=== PATIENT | male | born 1990 | race Caucasian/White ===

== ENCOUNTER 2021-04-29 01:40 | Inpatient (IN) | payer OTHER, SELFPAY ==
[2021-04-29] VITALS (13 sets, daily range): BP systolic 55–147; BP diastolic 37–120
[~2021-04-29] VITALS: Ht 175.3 cm; Wt 115.2 kg
--- NOTE | 2021-04-29 01:40 | NUR ---
PT BROUGHT TO BED 1 VIA DAVIS SORTO
[2021-04-29] MEDS ORDERED: ETOMIDATE 20 MG/10 ML VIAL IVP ONE ×2 (01:45→01:50)
[2021-04-29] MEDS ORDERED: PROPOFOL 1000 MG/100 ML PREMIX 100 ML IV ONE ×3 (01:45→04:52)
[2021-04-29] MEDS ORDERED: SUCCINYLCHOLINE CHLORIDE 200 MG/10 ML VIAL IVP ONE (01:45)
[2021-04-29] MEDS ORDERED: PROPOFOL 200 MG/20 ML VIAL IV ONE (01:45)
--- NOTE | 2021-04-29 01:50 | NUR ---
SEE IV SPREAD SHEET FOR VS.
--- NOTE | 2021-04-29 01:50 | NUR ---
PATIENT 30 Y/O MALE ARRIVED TO ER WITH AGONAL RESPIRATIONS AND ALTERED. PATIENT NOTED WITH COLD CLAMY SKIN AND JAUNDICE. PATIENT WAS INTUBATED W/ 7.5 ETT SECURED @ 23CM PT PLACED ON VENT AC/VC 475 +5 f16 100%. PER EMS PATIENT HAS MEDICAL HX OF LUNG CANCER THAT HAS METASTASIZED TO SPINE AND BONE. PATIENT NOTED WITH NATALEE. RT, PRIMARY RN, LACTATION CONSULTANT, AND EMT AT BEDSIDE FOR INTUBATION. MEDHX: LUNG CANCER, HTN, BKA NKA
--- NOTE | 2021-04-29 01:52 | NUR ---
# 16 FR Swan catheter with 10 ml utilizing sterile technique. Immediate return of 50 ml YELLOW urine noted. Bedside drainage bag placed below level of bladder. Urine sample collected and sent to lab. Pt tolerated procedure WELL. OG TUBE PLACED.
[2021-04-29] MEDS ORDERED: NACL 0.9% 1,000 ML IV ONE (01:55)
--- NOTE | 2021-04-29 02:00 | NUR ---
LABS DRAWN AND TAKEN TO [facility]- [facility].
[2021-04-29 02:10] LABS: BASOPHILS # (AUTO) 0.1 K/uL (0.00-0.22); BASOPHILS % (AUTO) 0.5 % (0.0-2.0); EOSINOPHILS % (AUTO) 0.1 % (0.0-4.0); HEMATOCRIT 45.8 % (36-52); HEMOGLOBIN 14.7 g/dL (12.0-18.0); LYMPHOCYTES # (AUTO) 1.4 K/uL (2.0-11.5); LYMPHOCYTES % (AUTO) 4.8 % (20.5-51.1); MEAN CORPUSCULAR HEMOGLOBIN 25 pg (27-31); MEAN CORPUSCULAR HGB CONC 32 g/dL (33-37); MEAN CORPUSCULAR VOLUME 78.2 fL (80-94); MONOCYTES # (AUTO) 1.1 K/uL (0.8-1.0); MONOCYTES % (AUTO) 3.7 % (1.7-9.3); NEUTROPHILS % (AUTO) 90.9 % (42.2-75.2); PLATELET COUNT (AUTO) 192 K/uL (140-450); RED BLOOD CELL COUNT(AUTO) 5.86 MIL/uL (4.20-6.10); RED CELL DISTRIBUTION WIDTH 21.3 % (11.6-13.7)
[2021-04-29] MEDS ORDERED: VANCOMYCIN 1,000 MG in DEXTROSE 5% 250 ML IV ONE (02:10)
[2021-04-29] MEDS ORDERED: PIPERACILLIN/TAZOBACTAM 3.375 GM in DEXTROSE 5% 50 ML IV ONE (02:10)
[2021-04-29] MEDS ORDERED: MIDAZOLAM MDV 50 MG in NACL 0.9% 40 ML IV ONE (02:20)
[2021-04-29 02:22] LABS: APPEARANCE,URINE SL CLOUDY (CLEAR); BILIRUBIN,URINE NEGATIVE (NEGATIVE); BLOOD, URINE 3+ (NEGATIVE); COLOR,URINE YELLOW (YELLOW); LEUKOCYTE ESTERASE ,URINE NEGATIVE (NEGATIVE); NITRITE, URINE NEGATIVE (NEGATIVE); UGLUCOSE NEGATIVE (NEGATIVE)
[2021-04-29 02:25] LABS: WHITE BLOOD COUNT (AUTO) 28.6 K/uL (4.8-10.8)
--- NOTE | 2021-04-29 02:27 | NUR ---
PT BIBA AND WAS INTUBATED W/ 7.5 ETT SECURED @ 23CM PT PLACED ON VENT AC/VC 475 +5 f16 100% VENT PLUGGED INTO RED OUTLET W/ ALARMS ON AND AUDIBLE AMBU REMAINS AT BEDSIDE PENDING CXR FOR TUBE PLACEMENT. CONDENSATION VISABLE IN TUBE W/ COLOR CHANGE ON EZ CAP (CO2)
[2021-04-29] MEDS ORDERED: MIDAZOLAM MDV 50 MG/10 ML VIAL IV ONE (02:28)
--- NOTE | 2021-04-29 02:30 | NUR ---
ERMD MADE AWARE THAT PATIENT BP:62/23. NEW ORDER FOR LEVOHPED 4MG GIVEN TITRATING DRIP. 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 BED IS LOCKED AND IN LOWEST POSTION. RT AT BEDSIDE.
[2021-04-29 02:31] LABS: RBC,URINE TOO NUMEROUS TO COUN /HPF (0-5); WBC,URINE 0-5 /HPF (0-5)
[2021-04-29 02:32] LABS: PROTHROMBIN TIME 13.2 secs (10.8-13.4)
[2021-04-29 02:33] LABS: ANION GAP 17.3 (8-16); CARBON DIOXIDE 22.6 mmol/L (21-32); CREATININE 1.4 mg/dL (0.6-1.3); POTASSIUM 4.9 mmol/L (3.5-5.1); TOTAL BILIRUBIN 1.9 mg/dL (0.0-1.0)
[2021-04-29] MEDS ORDERED: NOREPINEPHRINE 4 MG in DEXTROSE 5% 250 ML IV ONE (02:40)
[2021-04-29] MEDS ORDERED: NOREPINEPHRINE 4 MG/4 ML VIAL IV ONE ×3 (02:40→10:30)
--- NOTE | 2021-04-29 02:52 | NUR ---
UNABBLE TO OBTAIN ABG AT THIS TIME DUE TO LOW BP DR WAS INFORMED
--- NOTE | 2021-04-29 03:05 | NUR ---
SISTER NÉSTOR BONNER [phone]
[2021-04-29] MEDS ORDERED: PIPERACILLIN/TAZOBACTAM 3.375 GM VIAL IV ONE (03:11)
--- NOTE | 2021-04-29 03:15 | NUR ---
GAVE REPORT TO [facility] SALES REPRESENTATIVE FOR LUNCH COVERAGE.
--- NOTE | 2021-04-29 03:15 | NUR ---
MULTIPLE ATTEMPTS AT IV PLACEMENT ATTEMPTED TO ADMINISTER MEDICATIONS ORDERD. IV PLACED IN L HAND. IVF BEING ADMINISTERED.
--- NOTE | 2021-04-29 04:02 | NUR ---
RECIVED PARRISH CHEN, RT AT BEDSIDE. PATIENT IV PULLED OUT. CATHETER IN PLACE, DRESSING APPLIED TO SITE AND PRESSURE APPLIED. PATIENT RECIVED 100ML OF IVF. ATTEMPTED TO REPLACE IV.
--- NOTE | 2021-04-29 04:18 | NUR ---
ABNORM ABG RESULTS REPORTED TO W/ NO CHANGES AT THIS TIME VENT MODE WAS CHANGED TO PC P22 +5 f16 100% POST ABG DUE TO HIGH PIPs PT RECIEVING APPROX 450 TO 480 Vt ED WAS INFORMED
--- NOTE | 2021-04-29 05:02 | NUR ---
CALLED SISTER AND GAVE UPDATE ON PATIENT'S CONDITION. SISTER GAVE MORE INFORMATION ON PATIENT'S MEDICAL HX AND MED REC.
--- NOTE | 2021-04-29 05:22 | NUR ---
MULTIPLE ATTEMPTS MADE FOR ANOTHER IV PLACEMENT. UNSUCCESSFUL, ERMD MADE AWARE AND NOTIFIED THAT IVF AND ANTIBIOTICS TO BE ADMINISTERED LATE WITH IV INSERTION. ERMD STATES THAT WILL NOT PLACE A CENTRAL LINE AT THIS TIME.
--- NOTE | 2021-04-29 06:04 | NUR ---
CONTACTED FOR POSSIBLE PICC LINE INSERTION.
--- NOTE | 2021-04-29 06:15 | NUR ---
SPOKE WITH AND EXPLAINED THAT MULTIPLE ATTEMPTS FOR ANOTHER IV INSERTION UNSUCCESSFUL AND ERMD UNABLE TO PLACE CENTRAL LINE AT THIS TIME. RECIVED NEW ORDER FOR PICC LINE INSERTION. GRAVEL HAULER GRECIA NOTIFIED.
--- NOTE | 2021-04-29 06:17 | NUR ---
LEAVE MESSAGE TO PICCLINE REGARDING PICCLINE ORDER
[2021-04-29] MEDS ORDERED: HYDR-5080 PO (06:18)
[2021-04-29] MEDS ORDERED: FENT100T TD (06:18)
[2021-04-29] MEDS ORDERED: METO50TE2 PO (06:18)
--- NOTE | 2021-04-29 07:15 | NUR ---
REPORT GIVEN TO PRANEETH MCCOLLUM, TRANSFER OF CARE.
--- NOTE | 2021-04-29 07:19 | NUR ---
RECEIVED REPORT FROM VEDA VUONG FOR CONTINUATION OF CARE
--- NOTE | 2021-04-29 07:30 | NUR ---
TRANSFERRED PT FROM ED TO ICU WITH NO INCIDENT. VENT CONNECTED TO RED OUTLET. WILL CONTINUE TO MONITOR PATIENT.
--- NOTE | 2021-04-29 07:35 | NUR ---
RCV'D PATIENT INTUBATED WITH 7.5 ETT AT 23 CM AT TEETH. TUBE IS IN PLACE AND SECURED WITH ANCHOR-FAST. NO SOB OR DISTRESS NOTES. VENT CONNECTED TO RED OUTLET. ALARMS AUDIBLE. AMBU BAG AT BEDSIDE. WILL CONTINUE TO MONITOR PATIENT.
--- NOTE | 2021-04-29 08:01 | NUR ---
Patient will be admitted to care of DR. GOMES. Admited to ICU. Will go to room ICU BED 8. Belongings list completed. Report to VEDA YOU.
--- NOTE | 2021-04-29 08:01 | NUR ---
PT TAKEN TO ICU BED 8 WITH THONG ALLISON AND [place] EMT
[2021-04-29] MEDS ORDERED: VANCOMYCIN PER PHARMACY MC PRN (08:05)
[2021-04-29] MEDS ORDERED: INSULIN LISPRO SLIDING SCALE 100 UNITS/ML VIAL SUBQ PRN (08:10)
[2021-04-29] MEDS ORDERED: DEXTROSE 50% 50 ML SYR IVP PRN (08:10)
[2021-04-29] MEDS ORDERED: ONDANSETRON 4 MG/2 ML VIAL IM/IVP PRN (08:15)
[2021-04-29] MEDS ORDERED: POTASSIUM CHLORIDE 40 MEQ, LIDOCAINE MPF 1% 25 MG in NACL 0.9% 250 ML IV PRN (08:15)
[2021-04-29] MEDS ORDERED: DOCUSATE SODIUM 100 MG GELCAP PO PRN (08:15)
[2021-04-29] MEDS ORDERED: MAG SULF 2000 MG/WATER PREMIX 50 ML IV PRN (08:15)
[2021-04-29] MEDS ORDERED: NACL 0.9% 1,000 ML IV SCH (08:15)
[2021-04-29] MEDS ORDERED: ACETAMINOPHEN 325 MG TAB PO PRN (08:15)
[2021-04-29] MEDS ORDERED: SODIUM PHOS / POTASSIUM PHOS 1 PKT PDR PO PRN (08:15)
[2021-04-29] MEDS ORDERED: MORPHINE SULFATE 2 MG/ML SYR IVP PRN (08:15)
[2021-04-29] MEDS ORDERED: HYDROcodone/APAP 5/325 MG 1 TAB TAB PO PRN (08:15)
--- NOTE | 2021-04-29 08:20 | NUR ---
PATIENT HAS BEEN SCREENED AND CATEGORIZED HIGH NUTRITION RISK. PATIENT WILL BE SEEN WITHIN 1-2 DAYS OF ADMISSION. 04/29/21-04/30/21 FNS CONSULT RECEIVED FOR TUBE FEEDING [address]ACE [address]
[2021-04-29 08:40] LABS: PHOSPHORUS 6.6 mg/dL (2.5-4.9)
[2021-04-29] MEDS ORDERED: PANTOPRAZOLE 40 MG INJ VIAL IVP SCH (09:00)
--- NOTE | 2021-04-29 09:25 | NUR ---
ABG DONE. RIA GOMES FOR RESULTS.
[2021-04-29] MEDS: PROPOFOL 1000 MG/100 ML PREMIX 100 ML IV PRN ×2 (10:36→15:16)
[2021-04-29] MEDS ORDERED: NOREPINEPHRINE 4 MG in DEXTROSE 5% 250 ML IV PRN (10:45)
[2021-04-29] MEDS ORDERED: VANCOMYCIN HCL 1.25 GM in DEXTROSE 5% 250 ML IV SCH (11:00)
[2021-04-29] MEDS ORDERED: SCOPOLAMINE 1.5 MG/72 HR PATCH TD PRN (11:05)
[2021-04-29] MEDS ORDERED: LORazepam 1 MG TAB PO PRN (11:05)
[2021-04-29] MEDS ORDERED: BLOOD GLUCOSE MONITORING 1 DEV DEV FS SCH (11:30)
[2021-04-29] MEDS ORDERED: NACL 0.9% IV PRN (11:30)
[2021-04-29] MEDS ORDERED: MORPHINE SULFATE IV PRN (11:30)
[2021-04-29] MEDS: PIPERACILLIN/TAZOBACTAM 3.375 GM in DEXTROSE 5% 50 ML IV SCH ×2 (12:00→19:00)
--- NOTE | 2021-04-29 12:38 | NUR ---
DC PLANNIN YRS OLD MALE PATIENT WAS ADMITTED FROM HOME WITH A DX OF METASTATIC LUNG CA, SEPTIC SHOCK, RESP FAILURE. PATIENT HAS A HX OF METASTATIC OSTEOSARCOMA , RIGHT BKA. CXR SHOWED BILATERAL PULMONARY INFILTRATE . RAPID COVID TEST NEGATIVE. URINE AND BLOOD CULTURE PENDING. INTUBATED SEDATED FI02 100% ADMINISTERED IVF, IV ABX ZOSYN AND VANCOMYCIN. CONSULTED WITH PULMO AND NEPHRO. CM TO FOLLOW. Addendum: 04/29/21 at 1251 by Kellee Perez RN DC PLANNING: CALLED [facility] SPOKE WITH JESUS LAMA STATED THEY REVIEWED AND APPROVE FOR TODAY, NO CM ASSIGNED YET BUT WILL EMAIL TO THE COORDINATOR AND THE ASSIGNED CM WILL CALL BACK CM TO FOLLOW
[2021-04-29 13:58] LABS: ANION GAP 13.6 (8-16); CARBON DIOXIDE 22.6 mmol/L (21-32); CREATININE 1.6 mg/dL (0.6-1.3); POTASSIUM 5.2 mmol/L (3.5-5.1)
--- NOTE | 2021-04-29 14:28 | NUR ---
04/29/21 RD INITIAL ASSESSMENT COMPLETED PLEASE REFER TO NUTRITION ASSESSMENT UNDER CARE ACTIVITY FOR ESTIMATED NUTRITIONAL NEEDS. 1. CONTINUE GLUCERNA 1.2 @ 55 ML/HR; START AT 10 ML/HR ADVANCE BY 10 ML/HR Q6H -THIS WILL PROVIDE 1584 KCAL/DAY AND 79 GM OF PROTEIN/DAY 2. CONTINUE FREE WATER FLUSH OF [address] TO FOLLOW-UP 2-3 DAYS, HIGH RISK [address]ACE [address]
--- NOTE | 2021-04-29 14:50 | NUR ---
NOTIFIED DR. GOMES REGARDING BLOOD PRESSURE AND HEART RATE. PHONE ORDER TO ADMINISTER ATIVAN PER ORDERS.
[2021-04-29 15:44] LABS: BASOPHILS # (AUTO) 0.1 K/uL (0.00-0.22); BASOPHILS % (AUTO) 0.3 % (0.0-2.0); EOSINOPHILS % (AUTO) 0.2 % (0.0-4.0); HEMATOCRIT 41.4 % (36-52); HEMOGLOBIN 13.2 g/dL (12.0-18.0); LYMPHOCYTES # (AUTO) 1.1 K/uL (2.0-11.5); LYMPHOCYTES % (AUTO) 4.4 % (20.5-51.1); MEAN CORPUSCULAR HEMOGLOBIN 25 pg (27-31); MEAN CORPUSCULAR HGB CONC 32 g/dL (33-37); MEAN CORPUSCULAR VOLUME 78.1 fL (80-94); MONOCYTES # (AUTO) 2.1 K/uL (0.8-1.0); MONOCYTES % (AUTO) 8.4 % (1.7-9.3); NEUTROPHILS % (AUTO) 86.7 % (42.2-75.2); PLATELET COUNT (AUTO) 159 K/uL (140-450); RED CELL DISTRIBUTION WIDTH 21.8 % (11.6-13.7)
[2021-04-29 15:50] LABS: WHITE BLOOD COUNT (AUTO) 25.4 K/uL (4.8-10.8)
--- NOTE | 2021-04-29 16:10 | NUR ---
DR. GOMES CONTACTED REGARDING RESPIRATORY STATUS, HEART RATE AND BLOOD PRESSURE. NO NEW ORDERS
--- NOTE | 2021-04-29 18:45 | NUR ---
MONITOR SHOWING ASYSTOLE, DR. GOMES NOTIFIED. SAYS HE IS NO LONGER IN HOSPITAL ASKED TO CALL ER DOCTOR TO PRONOUNCE PATIENT. ER CALLED, AWAITING ER DOCTOR TO PRONOUNCE PATIENT. MONITOR REMAINS ASYSTOLE.
--- NOTE | 2021-04-29 19:14 | NUR ---
[facility]IMATION INSTRUCTOR DEPUTYTOM, CALLED [phone] AWAITING CALLBACK.
--- NOTE | 2021-04-29 19:26 | NUR ---
[facility], LEYLA CALLED, NOT CANDIDATE, CASE # [id number]
--- NOTE | 2021-04-29 19:45 | NUR ---
[facility]; BODY OK TO BE RELEASED TO MORTUARY; NO CASE NUMBER @ THIS TIME.
--- NOTE | 2021-04-29 20:42 | NUR ---
CALLED SISTER; MARCIN BONNER [phone] ASKED ABOUT MORTUARY PLANS FOR BROTHER, NO MORTUARY SELECTED. MARCIN ASKED IF POSSIBLE TO GET IN CONTACT WITH LOCAL MORTUARIES. DIMAS BEAL [phone] AND JODY [phone] GIVEN. BELONGINGS ON HOLD, FAMILY TO HEAD REFRIGERATION ENGINEER IN AM.
--- NOTE | 2021-04-29 21:20 | NUR ---
POST MORTEM CARE DONE PER PROTOCOL. WILL CONTINUE TO OBSERVE.
--- NOTE | 2021-04-30 00:11 | NUR ---
[facility].
== END 2021-04-30 00:11 | DRG 871 ==
LOC: MED 01:40 → MTU 05:26 → MIC 05:54
PROVIDERS: ADMIT Hospitalist; ATTEND Hospitalist
PROC: 0BH17EZ Insertion of Endotracheal Airway into Trachea, Via Natural or Artificial Opening (ICD-10-PCS; principal; 2021-04-29)
PROC: 5A1935Z Respiratory Ventilation, Less than 24 Consecutive Hours (ICD-10-PCS; 2021-04-29)
DX: A41.9 Sepsis, unspecified organism (principal); R65.21 Severe sepsis with septic shock; J96.02 Acute respiratory failure with hypercapnia; J69.0 Pneumonitis due to inhalation of food and vomit; N17.0 Acute kidney failure with tubular necrosis; J96.01 Acute respiratory failure with hypoxia; E87.1 Hypo-osmolality and hyponatremia; E44.0 Moderate protein-calorie malnutrition; Z66 Do not resuscitate; I46.9 Cardiac arrest, cause unspecified; E87.5 Hyperkalemia; Z20.822 Contact with and (suspected) exposure to COVID-19; R73.9 Hyperglycemia, unspecified; E80.6 Other disorders of bilirubin metabolism; Z89.512 Acquired absence of left leg below knee; Z85.118 Personal history of other malignant neoplasm of bronchus and lung; Z85.830 Personal history of malignant neoplasm of bone; Z89.511 Acquired absence of right leg below knee; Z79.899 Other long term (current) drug therapy; Z68.37 Body mass index [BMI] 37.0-37.9, adult
CPT/HCPCS: 31500; 36415; 36600; 51702; 71045; 80048; 80053; 81001; 82140; 82803; 83605; 83735; 84100; 85025; 85610; 85730; 87040; 87081; 87086; 94003; 96374; 96375; 99291; C9113; J1815; J2250; J2270; J2543; J2704; J3370; J3490; J7030; J7060; Q0092